=== PATIENT | male | born 1995 ===

== ENCOUNTER 2021-04-19 08:00 | Outpatient (CLI) | payer OTHER | END 2021-04-19 23:59 | LOC: LAB 08:00 | PROVIDERS: ATTEND Registered Nurse | DX: U07.1 COVID-19 (principal) ==

== ENCOUNTER 2022-06-27 11:14 | Emergency (ER) | payer OTHER ==
[2022-06-27 11:54] LABS: RAPID STREP SCREEN Negative (Negative)
--- NOTE | 2022-06-27 12:03 | XRAY Report ---
PROCEDURE: Chest 1 View X-Ray INDICATIONS: fever/cough TECHNIQUE: One view of the chest was acquired. COMPARISON: None currently available. FINDINGS: Surgical changes and devices: None. Lungs and pleura: Hazy alveolar opacity in the lateral left lower lung. Blunting left costophrenic s ulcus. The right lung is clear. No pneumothorax. Mediastinum: Mediastinal contours appear normal. Heart size is normal. Bones and chest wall: No suspicious bony lesions. Overlying soft tissues appear unremarkable. IMPRESSION: 1. Findings suggestive of left lateral lower lung alveolar opacity and small left pleural effusion. P neumonia is suspected. Reviewed by: Rayna Cheung MD on 06/27/2022 12:01 PM PDT Approved by: Rayna Cheung MD on 06/27/2022 12:01 PM PDT Station ID: [id number]
[2022-06-27 12:13] LABS: BASOPHILS % (AUTO) 0.5 %; EOSINOPHILS % (AUTO) 0.7 %; HCT - HEMATOCRIT 38.7 % (42.0-52.0); HGB - HEMOGLOBIN 13.4 g/dL (14.0-18.0); LYMPHOCYTES # (AUTO) 0.9 10^3/uL (1.5-3.5); LYMPHOCYTES % (AUTO) 16.5 %; MEAN CORPUSCULAR HEMOGLOBIN 30.2 pg (27.0-31.0); MEAN CORPUSCULAR HGB CONC 34.6 g/dL (32.0-36.0); MEAN CORPUSCULAR VOLUME 87.2 fL (80.0-94.0); MEAN PLATELET VOLUME 9.8 fL (7.4-11.4); MONOCYTES # (AUTO) 1.3 10^3/uL (0.0-1.0); MONOCYTES % (AUTO) 24.3 %; NEUTROPHILS # (AUTO) 3.2 10^3/uL (1.5-6.6); NEUTROPHILS % (AUTO) 57.8 %; PLT - PLATELET COUNT 185 10^3/uL (130-450); RED BLOOD COUNT 4.44 10^6/uL (4.70-6.10); RED CELL DISTRIBUTION WIDTH 11.9 % (12.0-15.0); WHITE BLOOD COUNT 5.5 x10^3/uL (4.8-10.8)
--- OUTSIDE RECORDS SUMMARY | 2022-06-27 12:25 | EXTERNAL MEDICAL SUMMARY RPT | Continuity of Care Document ---
:1995 Author Organization [facility] Address [address] [place] [address] Phone Care Team Providers Name Role Phone Unavailable Unavailable Unavailable Hiwot Joe, Bob Unavailable Unavailable Allergies No information. Encounters No information. Functional Status No information. Immunizations No information. Medications No information. Problems date description facility 2022-06-24 00:00 Influenza with other respiratory [facility] 2022-06-24 00:00 Influenza-like illness [facility] 2022-06-24 00:00 Influenza due to unidentified [facility] Primary Care & influenza virus with other Ancillary Ser vices [place] respiratory manifestations Procedures date description facility 2022-06-24 00:00 Visit Code Hold [facility] [place] Results/Labs No information. Social History date description facility 2022-06-24 00:00 Never smoker [facility] [place] Vital Signs date measurement value units 2022-06-24 00:00 BMI 29.67 kg/m2 2022-06-24 00:00 BP_diastolic 67 mmHg 2022-06-24 00:00 BP_systolic 118 mmHg 2022-06-24 00:00 heart_rate 67 /min 2022-06-24 00:00 height_metric 182.88 cm 2022-06-24 00:00 height_standard 72 in 2022-06-24 00:00 respiration_rate 17 /min 2022-06-24 00:00 temperature_metric 37.22 C 2022-06-24 00:00 temperature_standard 99 F 2022-06-24 00:00 weight_metric 98.88 kg 2022-06-24 00:00 weight_standard 218 lb
[2022-06-27 12:26] LABS: ALBUMIN/GLOBULIN RATIO 1.1 (1.0-2.2); BILIRUBIN,TOTAL 1.6 mg/dL (0.2-1.0); CALCIUM 8.9 mg/dL (8.5-10.3); CREATININE 1.1 mg/dL (0.6-1.2); POTASSIUM 3.9 mmol/L (3.5-5.0); TOTAL PROTEIN 7.6 g/dL (6.7-8.2)
[2022-06-27 12:38] LABS: B. PARAPERTUSSIS- RESP PCR PAN NOT DETECTED; B. PERTUSSIS- RESP PCR PANEL NOT DETECTED; C. PNEUMONIAE- RESP PCR PANEL NOT DETECTED; CORONAVIRUS 229E-RESP PCR NOT DETECTED; CORONAVIRUS HKU1-RESP PCR NOT DETECTED; CORONAVIRUS NL63-RESP PCR NOT DETECTED; CORONAVIRUS OC43-RESP PCR NOT DETECTED; HUMAN METAPNEUMOVIRUS NOT DETECTED; INFLUENZA A- RESP PCR PANEL NOT DETECTED; INFLUENZA B - RESP PCR PANEL NOT DETECTED; M. PNEUMONIAE- RESP PCR PANEL NOT DETECTED; PARAINFLUENZA VIRUS 1 NOT DETECTED; PARAINFLUENZA VIRUS 2 NOT DETECTED; PARAINFLUENZA VIRUS 3 NOT DETECTED; PARAINFLUENZA VIRUS 4 NOT DETECTED; RHINOVIRUS/ENTEROVIRUS NOT DETECTED; RSV- RESP PCR PANEL NOT DETECTED; SARS-CoV-2 -RESP PCR PANEL NOT DETECTED
--- NOTE | 2022-06-27 13:46 | ED Physician Documentation ---
PD HPI URI - Stated complaint Stated Complaint: FEVER/FLU LIKE SYMPTOMS - Chief complaint Chief Complaint: Fever - History obtained from History obtained from: Patient - History of Present Illness Timing - onset: How many weeks ago (1) Timing duration: Weeks (1) Timing details: Gradual onset, Still present Associated symptoms: Fever, Chills, Nasal congestion, Rhinorrhea, Sinus pain, Sore throat, Productive cough Improves by: Rest, Medication Worsened by: Activity Similar symptoms before: Has not had sx before Recently seen: Not recently seen - Additional information Additional information: Dakotah Macedo 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 He had signs and symptoms of 1 week ago of nasal congestion and cough felt better the next day and the following day went skiing. He came back and felt worse day by day. He has cough productive of phlegm he has sinus pressure and pain a sore throat and lethargy. He has had fever. He has negative test for COVID influenza and RSV. He comes to the emergency department now feeling he is not improving. Review of Systems Constitutional: reports: Fever, Chills, Myalgias, Fatigue, Sweats Eyes: denies: Decreased vision Ears: denies: Ear pain Nose: reports: Rhinorrhea / runny nose, Congestion, Sinus pressure / pain Throat: reports: Sore throat Cardiac: denies: Chest pain / pressure, Palpitations, Pedal edema, Calf pain Respiratory: reports: Dyspnea, Cough GI: denies: Abdominal Pain, Nausea, Vomiting, Constipation, Diarrhea : denies: Dysuria, Frequency Skin: denies: Rash Musculoskeletal: denies: Neck pain, Back pain, Extremity pain Neurologic: reports: Generalized weakness, Headache. denies: Focal weakness, Numbness, Head injury, LOC PD PAST MEDICAL HISTORY - Present Medications Home Medications: Ambulatory Orders Medication Instructions Recorded Confirmed Amox/Clav 875/125 [Augmentin] 1 each PO Q12H #20 tablet 06/27/22 Azithromycin [Zithromax] 250 mg PO DAILY #6 tablet 06/27/22 - Allergies Allergies/Adverse Reactions: Allergies Allergy/AdvReac Type Severity Reaction Status Date / Time No Known Drug Allergies Allergy Verified 06/27/22 11:32 PD ED PE NORMAL - Vitals Vital signs reviewed: Yes (Normal) - General General: Alert and oriented X 3, Well developed/nourished, Other (The patient appears tachypneic at rest and has jingle writer tone and flattened affect consistent with his illness. He appears mildly anxious) - HEENT HEENT: Atraumatic, PERRL, EOMI, Ears normal, Other (Mucous membranes are dry the tonsils are 2+ cryptic and exudative) - Neck Neck: Supple, no meningeal sign, No bony TTP - Cardiac Cardiac: RRR, No murmur - Respiratory Respiratory: No respiratory distress, Other (Rhonchi specifically in the left base) - Abdomen Abdomen: Soft, Non tender - Back Back: No CVA TTP, No spinal TTP - Derm Derm: Normal color, Warm and dry, No rash - Extremities Extremities: No deformity, No edema - Neuro Neuro: Alert and oriented X 3, manager federal 2-12 intact, No motor deficit, No sensory deficit, Normal speech Eye Opening: Spontaneous Motor: Obeys Commands Verbal: Oriented GCS Score: 15 - Psych Psych: Normal mood Results - Vitals Vitals: Vital Signs - 24 hr 06/27/22 06/27/22 06/27/22 11:28 13:48 14:50 Temperature 37.1 C 38.2 C H 39.4 C H Heart Rate 88 98 Respiratory 20 28 H Rate Blood Pressure 117/61 119/71 O2 Saturation 98 100 Oxygen O2 Source Room air - Labs Labs: Laboratory Tests 06/27/22 06/27/22 06/27/22 11:37 11:37 11:37 WBC RBC Hgb Hct MCV MCH MCHC RDW Plt Count MPV Neut # (Auto) Lymph # (Auto) [place] # (Auto) Eos # (Auto) Baso # (Auto) Absolute Nucleated RBC Nucleated RBC % Sodium Potassium Chloride Carbon Dioxide Anion Gap BUN Creatinine Estimated GFR (MDRD) Glucose Calcium Total Bilirubin AST ALT Alkaline Phosphatase Total Protein Albumin Globulin Albumin/Globulin Ratio Lipase Urine Color DARK YELLOW Urine Clarity CLEAR Urine pH 6.5 Ur Specific Randall 1.015 Urine Protein 30 H Urine Glucose (UA) NEGATIVE Urine Ketones TRACE Urine Occult Blood NEGATIVE Urine Nitrite NEGATIVE Urine Bilirubin NEGATIVE Urine Urobilinogen 1 (NORMAL) Ur Leukocyte Esterase NEGATIVE Urine RBC 0-5 Urine WBC 0-3 Ur Squamous Epith Cells RARE Squamous Urine Bacteria Few Ur Microscopic Review INDICATED Urine Culture Comments NOT INDICATED Nasal Adenovirus (PCR) DETECTED A Nasal B. parapertussis DNA (PCR) NOT DETECTED Nasal Coronavir 229E PCR NOT DETECTED Nasal Coronavir HKU1 PCR NOT DETECTED Nasal Coronavir NL63 PCR NOT DETECTED Nasal Coronavir OC43 PCR NOT DETECTED Nasal Enterovir/Rhinovir PCR NOT DETECTED Nasal Influenza B PCR NOT DETECTED Nasal Influenza A PCR NOT DETECTED Nasal Parainfluen 1 PCR NOT DETECTED Nasal Parainfluen 2 PCR NOT DETECTED Nasal Parainfluen 3 PCR NOT DETECTED Nasal Parainfluen 4 PCR NOT DETECTED Nasal RSV (PCR) NOT DETECTED Nasal B.pertussis DNA PCR NOT DETECTED Nasal C.pneumoniae (PCR) NOT DETECTED August Human Metapneumo PCR NOT DETECTED Nasal M.pneumoniae (PCR) NOT DETECTED Nasal SARS-CoV-2 (PCR) NOT DETECTED Group A Strep Rapid Negative 06/27/22 06/27/22 12:10 12:10 WBC 5.5 RBC 4.44 L Hgb 13.4 L Hct 38.7 L MCV 87.2 MCH 30.2 MCHC 34.6 RDW 11.9 L Plt Count 185 MPV 9.8 Neut # (Auto) 3.2 Lymph # (Auto) 0.9 L [place] # (Auto) 1.3 H Eos # (Auto) 0.0 Baso # (Auto) 0.0 Absolute Nucleated RBC 0.00 Nucleated RBC % 0.0 Sodium 133 L Potassium 3.9 Chloride 100 L Carbon Dioxide 26 Anion Gap 7.0 BUN 14 Creatinine 1.1 Estimated GFR (MDRD) 82 L Glucose 112 H Calcium 8.9 Total Bilirubin 1.6 H AST 21 ALT 18 Alkaline Phosphatase 38 L Total Protein 7.6 Albumin 4.0 Globulin 3.6 Albumin/Globulin Ratio 1.1 Lipase 30 Urine Color Urine Clarity Urine pH Ur Specific Randall Urine Protein Urine Glucose (UA) Urine Ketones Urine Occult Blood Urine Nitrite Urine Bilirubin Urine Urobilinogen Ur Leukocyte Esterase Urine RBC Urine WBC Ur Squamous Epith Cells Urine Bacteria Ur Microscopic Review Urine Culture Comments Nasal Adenovirus (PCR) Nasal B. parapertussis DNA (PCR) Nasal Coronavir 229E PCR Nasal Coronavir HKU1 PCR Nasal Coronavir NL63 PCR Nasal Coronavir OC43 PCR Nasal Enterovir/Rhinovir PCR Nasal Influenza B PCR Nasal Influenza A PCR Nasal Parainfluen 1 PCR Nasal Parainfluen 2 PCR Nasal Parainfluen 3 PCR Nasal Parainfluen 4 PCR Nasal RSV (PCR) Nasal B.pertussis DNA PCR Nasal C.pneumoniae (PCR) August Human Metapneumo PCR Nasal M.pneumoniae (PCR) Nasal SARS-CoV-2 (PCR) Group A Strep Rapid - Rads (name of study) chest Relevant Findings:: Prelim report reviewed (Impression: Findings suggestive of left lateral lower lung alveolar opacity and small left pleural effusion. Pneumonia is suspected.), EMP independent interpretation of test PD Medical Decision Making - ED course Complexity details: considered differential, d/w patient, d/w family Reviewed Lab Results: We reviewed a complete blood count showing a normal white blood cell count a mildly depressed hematocrit at 38.7 hemoglobin of 13.4 platelets were normal at 185,000. Chemistries were remarkable for a sodium of 133 he had a mildly elevated total bilirubin of 1.6 the remainder of his kidney and liver functions are normal urinalysis showed urine protein negative for white blood cells negative for leukocyte Estrace a nasal PCR for multiple viruses detects adenovirus serology for a rapid strep was negative. A chest x-ray demonstrates left lower lobe infiltrate consistent with findings on physical examination. My interpretation of these findings are consistent with a community-acquired pneumonia without electrolyte abnormality, elevated WBC or hypoxia. ED course: This otherwise healthy appearing 26-year-old male appears to been taken down by pneumonia. He has an impressive appearing infiltrate on his chest x-ray corresponding to findings on physical examination. He is treated in the emergency department aggressively with Rocephin 1 g IV saline 1 L and dexamethasone [address] the patient on dual antibiotic therapy with Augmentin and Zithromax. Departure - Departure Disposition: 01 Home, Self Care Clinical Impression: Pneumonia Qualifiers: Pneumonia type: due to unspecified organism Laterality: left Lung location: lower lobe of lung Qualified Code(s): J18.9 - Pneumonia, unspecified organism Condition: Stable Instructions: ED Pneumonia Adult Follow-Up: [facility] [Provider Group] Prescriptions: Amox/Clav 875/125 [Augmentin] 1 each PO Q12H #20 tablet Azithromycin [Zithromax] 250 mg PO DAILY #6 tablet Comments: Dakotah, today it looks like you have a left lower lobe pneumonia. This is usually a bacterial process that is a complication of a viral process. We did detect a virus in your nasal smear. Today we detected adenovirus. This should have a similar course as any viral upper respiratory tract infection. We will need to treat the pneumonia with oral antibiotics. Today we gave you an injection of Rocephin and an injection of some dexamethasone. Both of these medications should begin to help today. I have E scribed some Augmentin and azithromycin to the [facility] in [place]. Follow-up with your primary at [facility] by the end of the week. Our expectation is slow and steady improvement over the next several days. If you have worsening that is a reason to come back and see us. Forms: Activity restrictions
[2022-06-27 13:49] LABS: BILIRUBIN,URINE NEGATIVE (NEGATIVE); GLUCOSE, URINE (UA) NEGATIVE (NEGATIVE); KETONES,URINE (UA) TRACE mg/dL (NEGATIVE); LEUKOCYTE ESTERASE, URINE NEGATIVE (NEGATIVE); NITRITE,URINE NEGATIVE (NEGATIVE); OCCULT BLOOD,URINE NEGATIVE (NEGATIVE); PH,URINE 6.5 PH (5.0-7.5); PROTEIN,URINE 30 mg/dL (NEGATIVE); UROBILINOGEN,URINE 1 (NORMAL) E.U./dL (NORMAL)
[2022-06-27 13:50] LABS: CLARITY,URINE CLEAR (CLEAR)
[2022-06-27] MEDS ORDERED: cefTRIAXone 1 GM in SODIUM CHLORIDE 0.9% MINIBAG 100 ML IV STA (14:02)
[2022-06-27] MEDS ORDERED: SODIUM CHLORIDE 0.9% 1,000 ML IV STA (14:02)
[2022-06-27] MEDS ORDERED: DEXAMETHASONE 10 MG/ML VIAL IVP STA (14:03)
[2022-06-27 14:05] LABS: BACTERIA,URINE Few /HPF (None Seen); RBC,URINE 0-5 /HPF (0-5); SQUAMOUS EPITHELIAL CELL,UR RARE Squamous (<= Few); WBC,URINE 0-3 /HPF (0-3)
[2022-06-27] MEDS ORDERED: ACETAMINOPHEN 500 MG TABLET PO STA (14:55)
[2022-06-27 15:55] VITALS: BP 132/75
[2022-06-27] MEDS ORDERED: IBUPROFEN 800 MG TABLET PO STA (15:56)
== END 2022-06-27 16:13 | disposition home or self-care (01) ==
LOC: ED 11:14
DX: J18.9 Pneumonia, unspecified organism (principal); Z20.822 Contact with and (suspected) exposure to COVID-19
CPT/HCPCS: 36415; 71045; 80053; 81001; 83690; 85025; 87070; 87430; 87633; 96365; 96375; 99284; A9270; 81003; 87086